=== PATIENT | female | born 1970 | race Two or more races ===

== ENCOUNTER 2023-08-07 18:00 | Emergency (ER) | payer OTHER, MEDICAID ==
[~2023-08-07] VITALS: Ht 170.2 cm; Wt 80.4 kg
[2023-08-07 21:38] VITALS: TEMP 98; O2SAT 99
[2023-08-07] MEDS: HYDROmorphone HCL 2 MG/ML VL/or syr IM ONE (21:46)
[2023-08-07] MEDS ORDERED: CIPR500T4 PO (21:51)
[2023-08-07] MEDS: cefTRIAXone 1GM/50ML D5W 50 ML IV ONE (22:06)
[2023-08-07 22:52] LABS: Urine Bacteria None Seen /hpf (None Seen)
[2023-08-07 23:12] LABS: Urine Blood Negative /uL (Negative); Urine Clarity Turbid (Clear); Urine Color Yellow (Yellow); Urine Protein, UAD TRACE (Negative); Urine Specific Gravity 1.015 (1.001-1.035); Urine Urobilinogen Normal (Negative); Urine WBC 204 /hpf (0 - 5); Urine WBC Clumps PRESENT /hpf (None Seen)
[2023-08-08 00:16] VITALS: BP 132/80; PULSE 82; RESP 18
[2023-08-08] MEDS: HYDROmorphone HCL 2 MG/ML VL/or syr IM ONE (00:16)
== END 2023-08-08 00:30 | disposition home or self-care (01) ==
LOC: ER 18:00 → EDBD 18:00 → ER 21:54
DX: N39.0 Urinary tract infection, site not specified (principal); R33.9 Retention of urine, unspecified; I10 Essential (primary) hypertension; F17.210 Nicotine dependence, cigarettes, uncomplicated; Z88.2 Allergy status to sulfonamides
CPT/HCPCS: 51702; 81001; 87086; 87088; 87186; 96365; 96372; 99285; J0696; J1170